=== PATIENT | male | born 1970 | race Caucasian/White ===

== ENCOUNTER 2019-07-31 09:20 | Emergency (ER) | payer OTHER ==
[~2019-07-31] VITALS: Ht 180.3 cm; Wt 90.7 kg
--- OUTSIDE RECORDS SUMMARY | ~2019-07-31 | XMS | Encounter Summary ---
Demographics + + + | Address | [facility] | | | [address] [place] [address] | | | [place] [address] | + + + | Home Phone | | + + + | Preferred Language | Unknown | + + + | Marital Status | Unknown | + + + | Sabianism Affiliation | Unknown | + + + | Race | Unknown | + + + | Ethnic Group | Unknown | + + + Author + + + | Author | [facility] | | | and [place] | + + + | Organization | [facility] | | | and [place] | + + + | Address | Unknown | + + + | Phone | Unavailable | + + + Support + + +---------+ + | Name | Relationship | Address | Phone | + + +---------+ + | No Contacts | ECON | Unknown | | + + +---------+ + Care Team Providers + +------+ + | Care Private Branch Exchange Repairer Name | Role | Phone | + +------+ + | No, Physician | PCP | Unavailable | + +------+ + Reason for Visit +--------+ + | Reason | Comments | +--------+ + | Other | imaging report | +--------+ + Encounter Details +--------+ + + + + | Date | Type | Department | Care Team | Description | +--------+ + + + + | 04/15/ | Telephone | [facility] | Rob Bland, | Other (imaging | | 2019 | | NEUROSURGERY [address] | 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 [address] | report ) | | | | [address] | [address] | | | | | [place], [place] | [place] [address] | | | | | [address] | [phone] | | | | | [phone] | | | +--------+ + + + + Social History + +-------+ +--------+------+ | Tobacco Use | Types | Packs/Day | Years | Date | | | | | Used | | + +-------+ +--------+------+ | Former Smoker | | | | | + +-------+ +--------+------+ + +---+---+---+ | Smokeless Tobacco: | | | | | Never Used | | | | + +---+---+---+ + + + | Sex Assigned at | Date Recorded | | | | + + + | Not on file | | + + + + + + + | Job Start Date | Occupation | Industry | + + + + | Not on file | Not on file | Not on file | + + + + + + + + | Travel History | Travel Start | Travel End | + + + + + + | No recent travel history available. | + + documented as of this encounter Plan of Treatment Not on filedocumented as of this encounter Visit Diagnoses Not on filedocumented in this encounter"
--- OUTSIDE RECORDS SUMMARY | ~2019-07-31 | XMS | Encounter Summary ---
Demographics + + + | Address | [facility] | | | [address] [place] [address] | | | [place] [address] | + + + | Home Phone | | + + + | Preferred Language | Unknown | + + + | Marital Status | Unknown | + + + | Church Affiliation | Unknown | + + + | Race | Unknown | + + + | Ethnic Group | Unknown | + + + Author + + + | Author | [facility] | | | and [place] | + + + | Organization | [facility] | | | [...] Team Providers + +------+ + | Care Fourth Grade Teacher Name | Role | Phone | + +------+ + | No, Physician | PCP | Unavailable | + +------+ + Encounter Details +--------+---------+ + + + | Date | Type | Department | Care Team | Description | +--------+---------+ + + + | 01/04/ | Office | [facility] | Rob Bland, | S/P lumbar | | 2019 | Visit | NEUROSURGERY [address] | SAT TUTOR [address] | laminectomy (Primary | | | | [address] | [address] | Dx); S/P | | | | [place], [place] | [place] [address] | discectomy; | | | | [phone] | [phone] | Degeneration of | | | | [phone] | | intervertebral disc | | | | | | of lumbar region; | | | | | | Lumbar radiculopathy | +--------+---------+ + + + Social History + +-------+ [...] + + documented as of this encounter Last Filed Vital Signs + + + + + | Vital Sign | Reading | Time Taken | Comments | + + + + + | Blood Pressure | 128/87 | 01/04/2019 1:52 PM | | | | | PDT | | + + + + + | Pulse | 74 | 01/04/2019 1:52 PM | | | | | PDT | | + + + + + | Temperature | - | - | | + + + + + | Respiratory Rate | - | - | | + + + + + | Oxygen Saturation | - | - | | + + + + + | Inhaled Oxygen | - | - | | | Concentration | | | | + + + + + | Weight | 89.8 kg (198 lb) | 01/04/2019 1:52 PM | | | | | PDT | | + + + + + | Height | - | - | | + + + + + | Body Mass Index | 26.85 | 09/13/2018 8:19 AM | | | | | PDT | | + + + + + documented in this encounter Progress Notes Rob Bland, SAT TUTOR - 01/04/2019 1:40 PM PDT Neurosurgery: Post Operative Visit Subjective: The patient is here for another postoperative appointment. The patient is S/P L4-5, L5-S1 decompression done by Dr. Ramos on 08/01/2018. The patients reports that he has increased low back pain with radiation down the left leg i n a L5 dermatomal pattern. He reports occasional weakness in the left leg. He is doing lig ht duty work at the [employer]. He is still having low back pain doing his job duties. He stat es that after surgery he was doing okay with pain. He states that about 2 months after surg rodney he was doing more walking or when doing physical activities he started to have increased pain. He has less pain when sitting. He states that he has increased low back pain when b ending at the waist and more leg pain when doing walking and physical activities. He report s numbness over all digits of the left toes and plantar aspect of the foot. He reports no p roblems in the right leg. Pain is currently a 6/10 in his lower lumbar region. Objective: Alert and oriented x3. Two guards present. Incision: clean, dry, intact. Incision has healed well. Motor: 5/5 bilateral lower extremties. Sitting SLR: Negative bilaterally. DTR: 2+ bilateral knees and bilateral achilles Sensation: Subjectively decreased over the left plantar aspect of the foot. Gait: Mildly antalgic Imaging: I reviewed both the imaging studies and the available radiology reports X-ray lumbar spine done on 12/11/2018: Disc narrowing L4-5 with moderate narrowing at L5-S1. Moderate narrowing of the L5-S1 disc space. No acute or subacute fracture seen. Incidentally noted there is calcification of t he left overlying the renal silhouette and is suggestive of a renal calculus. Otherwise unr emarkable lumbar spine. Assessment/Plan: S/P L4-5, L5-S1 decompression done by Dr. Ramos. - The patients reports that he has increased low back pain with radiation down the left leg in a L5 dermatomal pattern. He reports occasional weakness in the left leg. 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 He is still having low back pain doing his job duties. He st ates that after surgery he was doing okay with pain. He states that about 2 months after ramos rgery he was doing more walking and when doing physical activities he started to have increa sed pain. He has less pain when sitting. He states that he has increased low back pain whe n bending at the waist and more leg pain when doing walking and physical activities. He rep orts numbness over all digits of the left toes and plantar aspect of the foot. He reports n o problems in the right leg. - I do recommend that we get a MRI of the lumbar spine. This recommendation was written d own on a letter and put into a sealed envelope and handed to a guard. - The patient will follow-up after MRI lumbar spine is completed to discuss results - The patient was reminded to contact the office in the interim if there are any problems o r concerns. KAMLESH Fried CC: No Physician on file documented in this encounter Plan of Treatment Not on filedocumented as of this encounter Visit Diagnoses + + | Diagnosis | + + | S/P lumbar laminectomy - Primary | + + | S/P discectomy Other postprocedural status | + + | Degeneration of intervertebral disc of lumbar region | + + | Lumbar radiculopathy Thoracic or lumbosacral neuritis or radiculitis, unspecified | + + documented in this encounter"
--- OUTSIDE RECORDS SUMMARY | ~2019-07-31 | XMS | Clinical Summary ---
Demographics + + + | Address | [facility] | | | [address] [place] [address] | | | [place] [address] | + + + | Home Phone | | + + + | Preferred Language | Unknown | + + + | Marital Status | Unknown | + + + | Scientology Affiliation | Unknown | + + + | Race | Unknown | + + + | Ethnic Group | Unknown | + + + Author + + + | Author | [facility] | | | and [place] | + + + | Organization | [facility] | | | and [...] Team Providers + +------+ + | Care Systems Support Officer Name | Role | Phone | + +------+ + | No, Physician | PCP | Unavailable | + +------+ + Allergies No Known Allergies Medications + + + +---------+------+------+-------+ | Medication | Sig | Dispensed | Refills | Star | End | Statu | | | | | | t | Date | s | | | | | | Date | | | + + + +---------+------+------+-------+ | atorvaSTATin | Take 10 mg by mouth | | 0 | 06/2 | | Activ | | (LIPITOR) 10 mg | nightly. | | | 7/20 | | e | | tablet | | | | 18 | | | + + + +---------+------+------+-------+ | lisinopril | Take 20 mg by mouth | | 0 | 06/2 | | Activ | | (PRINIVIL, ZESTRIL) | daily. | | | 7/20 | | e | | 20 mg tablet | | | | 18 | | | + + + +---------+------+------+-------+ | capsaicin (ZOSTRIX | Apply topically 3 | | 0 | | | Activ | | HP) 0.1% topical | times daily. | | | | | e | | cream | | | | | | | + + + +---------+------+------+-------+ | nabumetone | Take 500 mg by mouth | | 0 | | | Activ | | (RELAFEN) 500 mg | 2 times daily. | | | | | e | | tablet | | | | | | | + + + +---------+------+------+-------+ | carBAMazepine | Take by mouth 2 | | 0 | | | Activ | | (TEGRETOL) 100 mg | times daily. | | | | | e | | chewable tablet | | | | | | | + + + +---------+------+------+-------+ | celecoxib | Take 200 mg by mouth | | 0 | | | Activ | | (CELEBREX) 200 mg | 2 times daily. | | | | | e | | capsule | | | | | | | + + + +---------+------+------+-------+ Active Problems + + + | Problem | Noted Date | + + + | Spinal stenosis of lumbar region with neurogenic claudication | 07/26/2018 | + + + + + | Overview: Added automatically from request for surgery [id number] | + + + + + | DDD (degenerative disc disease), lumbar | 07/26/2018 | + + + + + | Overview: Added automatically from request for surgery [id number] | + + + + + | Lumbar radiculopathy | 10/12/2017 | + + + | Degeneration of intervertebral disc of lumbar region | 10/12/2017 | + + + | Herniated lumbar intervertebral disc | 10/12/2017 | + + + Encounters +--------+ + + + + | Date | Type | Specialty | Care Team | Description | +--------+ + + + + | 06/10/ | Telephone | Pain Medicine | Pb Cao, | Procedure | | 2020 | | | MD | | +--------+ + + + + | 06/06/ | Office | Pain Medicine | Misael Huerta, | Lumbar radiculopathy | | 2019 | Visit | | YARN CLEANER | (Primary Dx); | | | | | | Degeneration of | | | | | | intervertebral disc | | | | | | of lumbar region; | | | | | | Herniated lumbar | | | | | | intervertebral disc | +--------+ + + + + from Last 3 Months Social History + +-------+ +--------+------+ | Tobacco [...] recent travel history available. | + + Last Filed Vital Signs + + + + + | Vital Sign | Reading | Time Taken | Comments | + + + + + | Blood Pressure | 113/75 | 04/16/2019 8:12 AM | | | | | PST | | + + + + + | Pulse | 67 | 04/16/2019 8:12 AM | | | | | PST | | + + + + + | Temperature | 36.7 C (98 F) | 08/02/2018 12:26 PM | | | | | PDT | | + + + + + | Respiratory Rate | 19 | 08/02/2018 12:26 PM | | | | | PDT | | + + + + + | Oxygen Saturation | - | - | | + + + + + | Inhaled Oxygen | - | - | | | Concentration | | | | + + + + + | Weight | 90.7 kg (200 lb) | 06/07/2019 8:56 AM | | | | | PST | | + + + + + | Height | 182.9 cm (6') | 06/07/2019 8:56 AM | | | | | PST | | + + + + + | Body Mass Index | 27.12 | 06/07/2019 8:56 AM | | | | | PST | | + + + + + Plan of Treatment + + + + + | Health Maintenance | Due Date | Last Done | Comments | + + + + + | Vaccine: | | 03/21/1972, 06/02/1970 | | | Dtap/Tdap/Td (3 - | 1 | | | | Tdap) | | | | + + + + + | Vaccine: Influenza | Completed | 01/21/2019 | | + + + + + Results Not on filefrom Last 3 Months Insurance + +--------+ +--------+-------+---------+--------+ | Payer | Benefi | Subscriber | Effect | Phone | Address | Type | | | t Plan | ID | celia | | | | | | / | | Dates | | | | | | Group | | | | | | + +--------+ +--------+-------+---------+--------+ | DEPARTMENT OF | CORRCT | [id number] | 03/01/ | | | Indemn | | CORRECTIONS | NL | | 2011-P | | | ity | | | HLTH | | resent | | | | | | FIRST | | | | | | | | [place] | | | | | | + +--------+ +--------+-------+---------+--------+ + +--------+ +--------+ + + | Guarantor Name | Accoun | Relation to | Date | Phone | Billing Address | | | t Type | Patient | of | | | | | | | | | | + +--------+ +--------+ + + | Eliot Garza Jr | Person | Self | [birth year] | [place] | | | al/Fam | | 1971 | [phone] | CORRECTIONAL | | | rubin | | | 9 (Home) | [address] | | | | | | | [place], | | | | | | | [place] [address] | + +--------+ +--------+ + + Advance Directives + + + + + | Type | Date Recorded | Patient | Explanation | | | | Packaging Sales Consultant | | + + + + + | Power of | | | | | Poising Inspector | | | | + + + + + | Advance | | | | | Directive | | | | + + + + +"
--- OUTSIDE RECORDS SUMMARY | ~2019-07-31 | XMS | Encounter Summary ---
Demographics + + + | Address | [facility] | | | [address] [place] [address] | | | [place] [address] | + + + | Home Phone | | + + + | Preferred Language | Unknown | + + + | Marital Status | Unknown | + + + | Congregational Affiliation | Unknown | + + + | Race | Unknown | + + + | Ethnic Group | Unknown | + + + Author + + + | Author | [facility] | | | and [place] | + + + | Organization | [facility] | | | [...] Team Providers + +------+ + | Care Airframe Technical Officer Name | Role | Phone | + +------+ + | No, Physician | PCP | Unavailable | + +------+ + Reason for Visit + + + | Reason | Comments | + + + | Follow-up | Former patient of Fewel | + + + Encounter Details +--------+ + + + + | Date | Type | Department | Care Team | Description | +--------+ + + + + | 12/18/ | Telephone | [facility] | Raji Ramos MD | Follow-up (Former | | 2019 | | NEUROSURGERY [address] | [address] | patient of Richard) | | | | [address] | [address] [place] [address] | | | | | [place], [place] | [place], [place] | | | | | [address] | [address] | | | | | [phone] | [phone] | | | | | | | | +--------+ + + + + Social History + +-------+ +--------+------+ | Tobacco Use | Types | Packs/Day | Years | Date | | | | | Used | | + +-------+ +--------+------+ | Former Smoker | | | | | + +-------+ +--------+------+ + + + | Sex Assigned at [...]
--- OUTSIDE RECORDS SUMMARY | ~2019-07-31 | XMS | Encounter Summary ---
Demographics + + + | Address | [facility] | | | [address] [place] [address] | | | [place] [address] | + + + | Home Phone | | + + + | Preferred Language | Unknown | + + + | Marital Status | Unknown | + + + | Tenriism Affiliation | Unknown | + + + | Race | Unknown | + + + | Ethnic Group | Unknown | + + + Author + + + | Author | [facility] | | | and [place] | + + + | Organization | [facility] | | | [...] Team Providers + +------+ + | Care Fondant Cooker Name | Role | Phone | + +------+ + | No, Physician | PCP | Unavailable | + +------+ + Reason for Visit + + + | Reason | Comments | + + + | Follow-up | | + + + | Back Pain | | + + + Encounter Details +--------+---------+ + + + | Date | Type | Department | Care Team | Description | +--------+---------+ + + + | 06/06/ | Office | [facility] | Misael Huerta, | Lumbar radiculopathy | | 2020 | Visit | [facility] | 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 male HPI Eliot Garza Jr is a 48 y.o. male accompanied by 2 guards who were present for the entiret y of the visit. He presents today with low back pain that radiates to the left lower extrem ity following the L5 dermatomal distribution. He also reports numbness in his left big toe and his entire left foot. His pain is worse with physical activity such as walking. He und erwent laminectomy with Dr. Ramos on 08/01/2018. The surgery did not improve his symptoms. I n fact he states that he feels as if his symptoms have worsened since the surgery. He did u ndergo 1 epidural prior to surgery which was not beneficial. He denies red flag symptoms. He is referred back to us by Rob Bland to discuss treatment options. Per Rob's note he was going to see if the patient could follow-up with Dr. Ramos. His pain is currently a 6 o ut of 10. Review of Systems Objective: Ht 1.829 m (6') | Wt 90.7 kg (200 lb) | BMI 27.12 kg/m Physical Exam Constitutional: He is oriented to person, place, and time. He appears well-developed and we ll-nourished. No distress. HENT: Head: Normocephalic and atraumatic. Eyes: Conjunctivae are normal. Right eye exhibits no discharge. Left eye exhibits no discha rge. Neck: Normal range of motion. No tracheal deviation present. No thyromegaly present. Cardiovascular: Normal rate and regular rhythm. Exam reveals no friction rub. No murmur heard. Pulmonary/Chest: Effort normal and breath sounds normal. No respiratory distress. Abdominal: Soft. Bowel sounds are normal. There is no abdominal tenderness. Neurological: He is alert and oriented to person, place, and time. No cranial nerve deficit . Skin: Skin is warm and dry. No rash noted. He is not diaphoretic. Psychiatric: He has a normal mood and affect. Lumbar: Axial mechanical lumbar pain upon exam. Motor: 5/5 throughout Sensory: Patellar DTRs +2 bilaterally. Decreased to light touch in the left L5 dermatomal distribution as compared to the left. Assessment and Plan: 1. Lumbar radiculopathy 2. Degeneration of intervertebral disc of lumbar region 3. Herniated lumbar intervertebral disc No orders of the defined types were placed in this encounter. No orders of the defined types were placed in this encounter. accompanied by 2 guards who were present for the entirety of the visit. He presents today with low back pain that radiates to the left lower extremity following the L5 dermatomal dis tribution. He also reports numbness in his left big toe and his entire left foot. His pain is worse with physical activity such as walking. He underwent laminectomy with Dr. Richard wolf 08/01/2018. The surgery did not improve his symptoms. In fact he states that he feels as i f his symptoms have worsened since the surgery. He did undergo 1 epidural prior to surgery which was not beneficial. He denies red flag symptoms. He is referred back to us by Rob sims to discuss treatment options. Per Rob's note he was going to see if the patient cou ld follow-up with Dr. Ramos. His pain is currently a 6 out of 10. Lumbar MRI shows postsurgical changes at L4-L5. Moderate to severe right neuroforaminal na rrowing with moderate left neuroforaminal narrowing at L4-L5. Severe left neuroforaminal na rrowing at L5-S1 which is consistent with his symptoms. He is therefore a candidate for a c audal with catheter epidural steroid injection targeting the left L5 and S1 nerve roots unde r fluoroscopy. Plan, alternatives, risks and potential benefits of the procedure were explained to the pat ient in great detail. The patient understands that there is no guarantee they will get pain relief with this procedure. They also understand that if they do get pain relief that ther e is no way to know how long it will last. They also understand there is a risk to the proc edure itself which includes but are not limited to infection, abscess, hematoma, nerve damag e, paraplegia or quadriplegia, increased pain, spinal headache, stroke, and side effects fro m the medications themselves. The patient wishes to proceed. Ample time was given for questions. All of the questions were answered to the patient's sa tisfaction. The patient was encouraged to use proper body mechanics to avoid increased pain , continue heat/cold therapy, home exercises, and medications as prescribed. The patient is in agreement with the plan. The following portions of the patient's histories were reviewed and updated as appropriate and is available elsewhere in the chart: Allergies, current medications, past family history , past medical history, past surgical history, past surgical history and problem list. KAMLESH Zayas has created this entry using [employer] Realitycheck and Grock[employer] macros. The entry has been reviewed and there may still exist sound alike word errors. documented in this encounter Plan of Treatment Not on filedocumented as of this encounter Visit Diagnoses + + | Diagnosis | + + | Lumbar radiculopathy - Primary Thoracic or lumbosacral neuritis or radiculitis, | | unspecified | + + | Degeneration of intervertebral disc of lumbar region | + + | Herniated lumbar intervertebral disc Displacement of lumbar intervertebral disc | | without myelopathy | + + documented in this encounter"
--- OUTSIDE RECORDS SUMMARY | ~2019-07-31 | XMS | Encounter Summary ---
Demographics + + + | Address | [facility] | | | [address] [place] [address] | | | [place] [address] | + + + | Home Phone | | + + + | Preferred Language | Unknown | + + + | Marital Status | Unknown | + + + | Taoist Affiliation | Unknown | + + + | Race | Unknown | + + + | Ethnic Group | Unknown | + + + Author + + + | Author | [facility] | | | and Quiqueana | + + + | Organization | [facility] | | | and [...] Team Providers + +------+ + | Care Technical Associate Name | Role | Phone | + +------+ + PCP | Unavailable | + +------+ + Encounter Details +--------+ + + + + | Date | Type | Department | Care Team | Description | +--------+ + + + + | 08/01/ | Hospital | [facility] | Vika Ramos MD | Spinal stenosis of | | 2019 - | Encounter | CENTER SURGICAL [address] | [address] | lumbar region with | | | | [address] | [address] | neurogenic | | 08/02/ | | [place] | [place] | claudication; DDD | | 2019 | | [address] | [address] | (degenerative disc | | | | [phone] | [phone] | disease), lumbar; | | | | | | Lumbar radiculopathy | +--------+ + + + + Social History + +-------+ +--------+------+ | Tobacco Use | Types | Packs/Day | Years | Date | | | | | Used | | + +-------+ +--------+------+ | Never Assessed | | | | | + +-------+ [...] + + + | Blood Pressure | 113/64 | 08/02/2018 12:26 PM | | | | | PDT | | + + + + + | Pulse | 78 | 08/02/2018 12:26 PM | | | [...] + + + + | Weight | 94.2 kg (207 lb 10.7 | 08/02/2018 12:26 PM | | | | oz) | PDT | | + + + + + | Height | 182.9 cm (6') | 08/02/2018 12:26 PM | | | | | PDT | | + + + + + | Body Mass Index | 28.16 | 08/02/2018 12:26 PM | | | | | PDT | | + + + + + documented in this encounter Medications at Time of Discharge + + + +---------+ + + | Medication | Sig | Dispensed | Refills | Start | End Date | | | | | | Date | | + + + +---------+ + + | atorvaSTATin | Take 10 mg by mouth | | 0 | 09/28/19 | | | (LIPITOR) 10 mg | nightly. | | | 18 | | | tablet | | | | | | + + + +---------+ + + | lisinopril | Take 20 mg by mouth | | 0 | 09/28/19 | | | (PRINIVIL, ZESTRIL) | daily. | | | 18 | | | 20 mg tablet | | | | | | + + + +---------+ + + | Alpha-Lipoic Acid | Take by mouth. | | 0 | 09/28/19 | | | 600 MG CAPS | | | | 18 | 0 | + + + +---------+ + + | | 1 to 2 tablets every | 60 | 0 | 08/03/19 | | | HYDROcodone-acetamin | 6 hours as needed | tablet | | 19 | 9 | | ophen (NORCO) 5-325 | for pain | | | | | | mg per tablet | | | | | | + + + +---------+ + + | meloxicam (MOBIC) | Take 15 mg by mouth | | 0 | 09/28/19 | | | 15 mg tablet | daily. | | | 18 | 9 | + + + +---------+ + + documented as of this encounter Progress Notes Conversion Transaction, Provider Unknown - 08/02/2018 12:17 PM PDTFormatting of this note m ight be different from the original. Nurse Progress Note by Caroline Marshall RN at 08/02/181216 Author: Caroline Marshall RN Service: (none) Author Type: Registered Nurse Filed: 08/02/18 1222 Date of Service: 08/02/181216 Status: Signed Backbreaker: Caroline Marshall RN (Registered Nurse) Report called to [facility] RN. Discharge instructions discussed including dressing felicita nges and pain medication. Per RN clarification needed re: duration of pain medication. Dr. Cyndi yang contacted, Hyrocodone 5/325 1-2 tablets every 6 hours PRN for 14 days. Vika Varela MD - 08/02/2018 7:02 AM PDTFormatting of this note might be different from the or iginal. Progress Notes by Vika Ramos MD at 08/02/18701 Author: Vika Ramos MD Service: Neurosurgery Author Type: Physician Filed: 08/02/18702 Date of Service: 08/02/18701 Status: Signed Backbreaker: Vika Ramos MD (Physician) [facility] Service: Neurological Surgery Progress Note Hospital Day: LOS: 0 days Post-Op Day: 1 Day Post-Op SUBJECTIVE Seems to be doing OK. No leg pain right now. OBJECTIVE Vital Signs: BP 132/77 (BP Location: Right upper arm) | Pulse 71 | Temp 98.8 F (37.1 C) (Oral) | Resp 17 | Ht 1.829 m (6') | Wt 94.2 kg (207 lb 10.8 oz) | SpO2 95% | BMI 28.17 kg/m Input/Output Last 3 shifts I/O last 3 completed shifts: In: 2212 [P.O.:1000; I.V.:1212] Out: 940 [Urine:940] Input/Output Last shift No intake/output data recorded. Physical Exam: Alert and oriented x 3. Speech clear and fluent. Moves UE and LE 5/5. Incision C/D/I. 2 guards here. PROBLEM LIST Active Problems: Lumbar radiculopathy Spinal stenosis of lumbar region with neurogenic claudication DDD (degenerative disc disease), lumbar ASSESSMENT & PLAN POD#1 s/p Lumbar lami/disc, doing well. Discharge likely today after sees PT. Followup ~ 2 weeks postop for wound check. Discharge instructions given (and provided in preop packet and discharge papers). Call office [phone] if any questions or problems or return to [facility] ER. VIKA RAMOS MD 08/02/2018 onversion Transactio n, Provider Unknown - 08/02/2018 6:43 AM PDT Nurse Progress Note by Ronal Gaspar RN at 08/02/18642 Author: Ronal Gaspar RN Service: (none) Author Type: Registered Nurse Filed: 08/02/18642 Date of Service: 08/02/18642 Status: Signed Backbreaker: Ronal Gaspar RN (Registered Nurse) End of shift chart check complete. onver suad Transaction, Provider Unknown - 08/01/2018 6:23 PM PDT Nurse Progress Note by Caroline Marshall RN at 08/01/181822 Author: Caroline Marshall RN Service: (none) Author Type: Registered Nurse Filed: 08/01/181822 Date of Service: 08/01/181822 Status: Addendum Backbreaker: Carloine Marshall RN (Registered Nurse) Related Notes: Original Note by Caroline Marshall RN (Registered Nurse) filed at 08/01/18 182 3 No blood protocol. All applicable protocols followed. All parameter meds checked, all order s released. Chart check complete. onver suad Transaction, Provider Unknown - 08/01/2018 12:31 PM PDT Nurse Progress Note by Ignacia Salomon RN at 08/01/18 1231 Author: Ignacia Salomon RN Service: General Surgery Author Type: Registered Nurse Filed: 08/01/18 1232 Date of Service: 08/01/18 1231 Status: Signed Backbreaker: Ignacia Salomon RN (Registered Nurse) Guard at bedside docume nted in this encounter Plan of Treatment Not on filedocumented as of this encounter Procedures + +--------+ + + + | Procedure Name | Priori | Date/Time | Associated Diagnosis | Comments | | | ty | | | | + +--------+ + + + | FL C ARM < 1 HOUR | Routin | 08/01/2018 | | Results for this | | | e | 12:02 PM | | procedure are in the | | | | PDT | | results section. | + +--------+ + + + documented in this encounter Results FL C-Arm < 1 Hour (08/01/2018 12:02 PM PDT) + + | Specimen | + + | | + + + + + | Impressions | Performed At | + + + | Fluoroscopic service for procedure. Signed by: Gordo Moctezuma Chet | | | Sign Date/Time: 08/01/2018 2:19 PM | | + + + + + + | Narrative | Performed At | + + + | C-ARM <60 W/FLUORO CLINICAL INFORMATION: Laminectomy l4-5 l5-s1 | | | FINDINGS: Fluoro Time: 2.7 seconds. Total number of images: 1. | | | Surgical instruments in the posterior soft tissues at the level of | | | L4-5. Moderate severe disc space narrowing with mild endplate | | | spurring at L4-5. | | + + + + + | Procedure Note | + + | Roney Choudhury Conversion - 11/13/2018 10:22 PM PDT C-ARM <60 W/FLUORO | | CLINICAL INFORMATION: | | Laminectomy l4-5 l5-s1 | | FINDINGS: | | Fluoro Time: 2.7 seconds. Total number of images: 1. | | Surgical instruments in the posterior soft tissues at the level of | | L4-5. Moderate severe disc space narrowing with mild endplate spurring | | at L4-5. | | IMPRESSION: | | Fluoroscopic service for procedure. | | Signed by: Gordo Moctezuma Chet | | Sign Date/Time: 08/01/2018 2:19 PM | + + documented in this encounter Visit Diagnoses + + | Diagnosis | + + | Spinal stenosis of lumbar region with neurogenic claudication Spinal stenosis, lumbar | | region, with neurogenic claudication | + + | DDD (degenerative disc disease), lumbar Degeneration of lumbar or lumbosacral | | intervertebral disc | + + | Lumbar radiculopathy Thoracic or lumbosacral neuritis or radiculitis, unspecified | + + documented in this encounter"
--- OUTSIDE RECORDS SUMMARY | ~2019-07-31 | XMS | Encounter Summary ---
Demographics + + + | Address | [facility] | | | [address] [place] [address] | | | [place] [address] | + + + | Home Phone | | + + + | Preferred Language | Unknown | + + + | Marital Status | Unknown | + + + | Baptism Affiliation | Unknown | + + + | Race | Unknown | + + + | Ethnic Group | Unknown | + + + Author + + + | Author | [facility] | | | and Quiqueana | + + + | Organization | [facility] | | [...] Team Providers + +------+ + | Care Flake Cutter Operator Name | Role | Phone | + +------+ + | No, Physician | PCP | Unavailable | + +------+ + Encounter Details +--------+ + + + + | Date | Type | Department | Care Team | Description | +--------+ + + + + | 08/02/ | Orders Only | [facility] | Raji Ramos MD | | | 2019 | | NEUROSURGERY [address] | [address] | | | | | [address] | [address] | | | | | [place], [place] | [place] | | | | | [address] | [address] | | | | | [phone] | [phone] | | | | | | | [...]
--- OUTSIDE RECORDS SUMMARY | ~2019-07-31 | XMS | Encounter Summary ---
Demographics + + + | Address | [facility] | | | [address] [place] [address] | | | [place] [address] | + + + | Home Phone | | + + + | Preferred Language | Unknown | + + + | Marital Status | Unknown | + + + | Restorationist Affiliation | Unknown | + + + | Race | Unknown | + + + | Ethnic Group | Unknown | + + + Author + + + | Author | [facility] | | | and Quiqueana | + + + | Organization | [facility] | | [...] Team Providers + +------+ + | Care Synthetic Filament Extruder Name | Role | Phone | + +------+ + | No, Physician | PCP | Unavailable | + +------+ + Reason for Visit + + + | Reason | Comments | + + + | Follow-up | imaging review | + + + Self-referral (Routine) + +--------+ + + + + | Status | Reason | Specialty | Diagnoses / | Referred By | Referred To | | | | | Procedures | Contact | Contact | + +--------+ + + + + | Authorized | | Neurosurgery | Diagnoses | | [facility] | | | | | mri review | | Neurosurgery | | | | | | | [address] | | | | | | | [address] | | | | | | | [address] | | | | | | | [place] | | | | | | | [address] | | | | | | | Phone: | | | | | | | [phone] | | | | | | | Fax: | | | | | | | [phone] | + +--------+ + + + + Encounter Details +--------+---------+ + + + | Date | Type | Department | Care Team | Description | +--------+---------+ + + + | 04/16/ | Office | [facility] | EdwinaRob, | Lumbar radiculopathy | | 2020 | Visit | NEUROSURGERY [address] | 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 [address] | (Primary Dx); | | | | [address] | [address] | Herniated lumbar | | | | [place], [place] | [place] [address] | intervertebral disc; | | | | [address] | [phone] | DDD (degenerative | | | | [phone] | | disc disease), | | | | | | lumbar; History of | | | | | | lumbar laminectomy; | | | | | | History of | | | | | | discectomy | +--------+---------+ + + + Social History [...] Weight | 89.8 kg (198 lb) | 04/16/2019 8:12 AM | | | | | PST | | + + + + + | Height | 182.9 cm (6') | 04/16/2019 8:12 AM | | | | | PST | | + + + + + | Body Mass Index | 26.85 | 04/16/2019 8:12 AM | | | | | PST | | + + + + + documented in this encounter Progress Notes Rob Bland, 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 - 04/16/2019 8:00 AM PSTFormatting of this note might be different f rom the original. Neurosurgery: Subjective: The patient is here in follow up for increased back pain. The patient is S/P L4-5, L5-S1 d ecompression done by Dr. Ramos on 08/01/2018. The patients reports that he has increased low back pain with radiation down the left leg i n a L5 dermatomal pattern. He reports occasional weakness in the left leg. 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 He is still having low back pain [...] a 6/10 in his lower lumbar region. The following portions of the patient's history were reviewed and updated as appropriate: a llergies, current medications, past family history, past medical history, past social histor y, past surgical history and problem list. Objective: BP 113/75 | Pulse 67 | Ht 1.829 m (6') | Wt 89.8 kg (198 lb) | BMI 26.85 kg/m Alert and oriented x3. Two guards present. Incision: Incision has healed well. Motor: 5/5 bilateral lower extremties. Sitting SLR: Negative bilaterally. DTR: 2+ bilateral knees and 2+ right achilles 1+ left achilles Sensation: Subjectively decreased over the left plantar aspect of the foot. Gait: Mildly antalgic Imaging: I reviewed both the imaging studies and the available radiology reports MRI lumbar spine done on 01/18/2019: Interval postsurgical alterations from L4-5 laminectomy's. At L4-5 there is small right pa racentral residual or recurrent disc herniation present. Overall there is greater patency o f the central canal at this level with only mild narrowing identified. There is moderate to severe right foraminal stenosis, which is improved from prior imaging. Moderate left neuro foraminal narrowing is again noted. Appears to be severe left L5-S1 neuroforaminal narrowin g. X-ray lumbar spine done on 12/11/2018: Disc narrowing L4-5 with moderate narrowing at L5-S1. Moderate narrowing of the L5-S1 disc space. No acute or subacute fracture seen. Incidentally noted there is calcification of t he left overlying the renal silhouette and is suggestive of a renal calculus. Otherwise unr emarkable lumbar spine. Assessment/Plan: S/P L4-5, L5-S1 decompression done by Dr. Ramos. ICD-10-CM ICD-9-CM 1. Lumbar radiculopathy M54.16 724.4 2. Herniated lumbar intervertebral disc M51.26 722.10 3. DDD (degenerative disc disease), lumbar M51.36 722.52 4. History of lumbar laminectomy Z98.890 V45.89 5. History of discectomy Z98.890 V45.89 - The patients reports that he has increased low back pain with radiation down the left leg in a L5 dermatomal pattern. He reports occasional weakness in the left leg. 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 He is still having low back pain [...] o problems in the right leg. - MRI of the lumbar spine shows interval postsurgical alterations from L4-5 laminectomy's. At L4-5 there is small right paracentral residual or recurrent disc herniation present. O verall there is greater patency of the central canal at this level with only mild narrowing identified. There is moderate to severe right foraminal stenosis, which is improved from pr ior imaging. Moderate left neuroforaminal narrowing is again noted. Appears to be severe l eft L5-S1 neuroforaminal narrowing. - I did recommend that the patient follow up with Interventional Pain Management for evalu ation and treatment. Possible RADU targeting the Left L5 nerve root. Possible MBB/RFN for l eft side low back pain. - The surgery was done with Dr. Ramos, who unfortunately does not work at our clinic any lo nger but is local. I will need to check to see if the patient is able to follow up with Dr. Ramos. - The patient was reminded to contact the office in the interim if there are any problems o r concerns. KAMLESH Fried CC: No Physician on file KAMLESH Fried has created this entry using Enjoyor Voice Recognition Perfectore e and Pivot macros. The entry has been reviewed and there may still exist sound alike word e rrors. Note: I spent approximately 30 minutes in jroc-nq-holy time of which greater than 50% was involved in counseling/coordination of care. documented in this encounter Plan of Treatment Not on filedocumented as of this encounter Visit Diagnoses + + | Diagnosis | + + | Lumbar radiculopathy - Primary Thoracic or lumbosacral neuritis or radiculitis, | | unspecified | + + | Herniated lumbar intervertebral disc Displacement of lumbar intervertebral disc | | without myelopathy | + + | DDD (degenerative disc disease), lumbar Degeneration of lumbar or lumbosacral | | intervertebral disc | + + | History of lumbar laminectomy | + + | History of discectomy Personal history of surgery to other organs | + + documented in this encounter"
--- OUTSIDE RECORDS SUMMARY | ~2019-07-31 | XMS | Encounter Summary ---
Demographics + + + | Address | [facility] | | | [address] [place] [address] | | | [place] [address] | + + + | Home Phone | | + + + | Preferred Language | Unknown | + + + | Marital Status | Unknown | + + + | Hindu Affiliation | Unknown | + + + | Race | Unknown | + + + | Ethnic Group | Unknown | + + + Author + + + | Author | [facility] | | | and Quiqueana | + + + | Organization | [facility] | | [...] Team Providers + +------+ + | Care Industrial Chemistry Teacher Name | Role | Phone | + +------+ + | No, Physician | PCP | Unavailable | + +------+ + Encounter Details +--------+ + + + + | Date | Type | Department | Care Team | Description | +--------+ + + + + | 08/02/ | Orders Only | [facility] | Raji Ramos MD | | | 2019 | | NEUROSURGERY [address] | [address] | | | | | [address] | [address]LO[address] | | | | | [place], [place] | [place] | | | | | [address] | [address] | | | | | [phone] | [phone] | | | | | | | [...]
--- OUTSIDE RECORDS SUMMARY | ~2019-07-31 | XMS | Encounter Summary ---
Demographics + + + | Address | [facility] | | | [address] [place] [address] | | | [place] [address] | + + + | Home Phone | | + + + | Preferred Language | Unknown | + + + | Marital Status | Unknown | + + + | Shinto Affiliation | Unknown | + + + | Race | Unknown | + + + | Ethnic Group | Unknown | + + + Author + + + | Author | [facility] | | | and Quiqueana | + + + | Organization | [facility] | | | [...] Team Providers + +------+ + | Care Journeyman Pipe Fitter Name | Role | Phone | + [...] | | | | | | | [address] | | | | | | | Phone: | | | | | | | [phone] | | | | | | | Fax: | | | | | | | [phone] | + +--------+ + + + + Encounter Details +--------+---------+ + + + | Date | Type | Department | Care Team | Description | +--------+---------+ + + + | 04/16/ | Office | [facility] | EdwinaRob, | Lumbar radiculopathy | | 2020 | Visit | NEUROSURGERY [address] | [employer]CE [address] | (Primary Dx); | | | | [address] | [address] | Herniated lumbar | | | | [place], [place] | [place] [address] | intervertebral disc; | | | | [address] | [phone] | DDD (degenerative | | | | [phone] | | disc disease), | | | [...] in this encounter Progress Notes Rob Bland, DECKHAND MAINTENANCE - 04/16/2019 8:00 AM PSTFormatting of this [...] 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 The entry has been reviewed and there may still exist sound alike word e rrors. Note: I spent approximately 30 minutes in hgam-tz-vffa time of which greater than 50% was [...]
--- OUTSIDE RECORDS SUMMARY | ~2019-07-31 | XMS | Clinical Summary ---
Demographics + + + | Address | [facility] | | | [address] [place] [address] | | | [place] [address] | + + + | Home Phone | | + + + | Preferred Language | Unknown | + + + | Marital Status | Unknown | + + + | Restorationism Affiliation | Unknown | + + + | Race | Unknown | + + + | Ethnic Group | Unknown | + + + Author + + + | Author | [facility] | | | and Quiqueana | + + + | Organization | [facility] | | [...] Team Providers + +------+ + | Care Extension Work Instructor Name | Role | Phone | + [...] Overview: Added automatically from request for surgery [id number] | + + + + + | DDD (degenerative disc disease), lumbar | 07/26/2018 | + + + + + | Overview: Added automatically from request for surgery [id number] | + + + + + | [...] | | 2019 | Visit | | 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
--- OUTSIDE RECORDS SUMMARY | ~2019-07-31 | XMS | Encounter Summary ---
Demographics + + + | Address | [facility] | | | [address] [place] [address] | | | [place] [address] | + + + | Home Phone | | + + + | Preferred Language | Unknown | + + + | Marital Status | Unknown | + + + | Tenriism Affiliation | Unknown | + + + | Race | Unknown | + + + | Ethnic Group | Unknown | + + + Author + + + | Author | [facility] | | | and Quiqueana | + + + | Organization | [facility] | | [...] Team Providers + +------+ + | Care Publications Editor Name | Role | Phone | + +------+ + PCP | Unavailable | + +------+ + Encounter Details +--------+ + + + + | Date | Type | Department | Care Team | Description | +--------+ + + + + | 08/01/ | Hospital | [facility] | Vika Ramos MD | Spinal stenosis of | | 2019 - | Encounter | CENTER SURGICAL [address] | [address] | lumbar region with | | | | [address] | [address] | neurogenic | | 08/02/ | | [place] | [place] | claudication; DDD | | 2019 | | [address] | [address] | (degenerative disc | | | | [phone] | [phone] | disease), lumbar; | | | | [...] 1222 Date of Service: 08/02/181216 Status: Signed Tourist Camp Attendant: Caroline Marshall RN (Registered Nurse) Report called to [facility] RN. Discharge instructions discussed including dressing [...] 08/02/18702 Date of Service: 08/02/18701 Status: Signed Tourist Camp Attendant: Vika Ramos MD (Physician) [facility] Service: Neurological Surgery Progress Note Hospital [...] preop packet and discharge papers). Call office [phone] if any questions or problems or return to [facility] ER. VIKA RAMOS MD 08/02/2018 onversion Transactio n, Provider Unknown - 08/02/2018 6:43 AM PDT Nurse Progress Note by Ronal Gaspar RN at 08/02/18642 Author: Ronal Gaspar RN Service: (none) Author Type: Registered Nurse Filed: 08/02/18642 Date of Service: 08/02/18642 Status: Signed Tourist Camp Attendant: Ronal Gaspar RN (Registered Nurse) End of shift chart check complete. onver suad Transaction, Provider Unknown - 08/01/2018 6:23 PM PDT Nurse Progress Note by Caroline Marshall RN at 08/01/181822 Author: Caroline Marshall RN Service: (none) Author Type: Registered Nurse Filed: 08/01/181822 Date of Service: 08/01/181822 Status: Addendum Tourist Camp Attendant: Caroline Marshall RN (Registered Nurse) Related Notes: Original [...] Date of Service: 08/01/18 1231 Status: Signed Tourist Camp Attendant: Ignacia Salomon RN (Registered Nurse) Guard at [...]
--- OUTSIDE RECORDS SUMMARY | ~2019-07-31 | XMS | Encounter Summary ---
Demographics + + + | Address | [facility] | | | [address] [place] [address] | | | [place] [address] | + + + | Home Phone | | + + + | Preferred Language | Unknown | + + + | Marital Status | Unknown | + + + | Sikhism Affiliation | Unknown | + + + | Race | Unknown | + + + | Ethnic Group | Unknown | + + + Author + + + | Author | [facility] | | | and Quiqueana | + + + | Organization | [facility] | | | [...] Team Providers + +------+ + | Care Academic Coordinator Name | Role | Phone | + +------+ + | No, Physician | PCP | Unavailable | + +------+ + Encounter Details +--------+ + + + + | Date | Type | Department | Care Team | Description | +--------+ + + + + | 09/27/ | Orders Only | [facility] | Conversion | | | 2018 | | CONVERSION DEP [address] | Transaction, | | | | | [address] | Provider Unknown | | | | | [place], [place] | [phone] | | | | | [address] | | | | | | [phone] | | | +--------+ + + + [...]
--- OUTSIDE RECORDS SUMMARY | ~2019-07-31 | XMS | Clinical Summary ---
Demographics + + + | Address | [facility] | | | [address] [place] [address] | | | [place] [address] | + + + | Home Phone | | + + + | Preferred Language | Unknown | + + + | Marital Status | Unknown | + + + | Nondenominational Affiliation | Unknown | + + + | Race | Unknown | + + + | Ethnic Group | Unknown | + + + Author + + + | Author | [facility] (Historical as of | | | 11-17-18) | + + + | Organization | [facility] (Historical as of | | | 11-17-18) | + + + | Address | Unknown | + + + | Phone | Unavailable | + + + Support + + +---------+ + | Name | Relationship | Address | Phone | + + +---------+ + | Contacts,No | ECON | Unknown | | + + +---------+ + Care Team Providers + +------+ + | Care Warper Fixer Name | Role | Phone | + +------+ + PP | Unavailable | + +------+ + Allergies No Known Allergies Current Medications + + +--------+---------+------+------+-------+ | Prescription | Sig. | Disp. | Refills | Star | End | Statu | | | | | | t | Date | s | | | | | | Date | | | + + +--------+---------+------+------+-------+ | meloxicam (MOBIC) | Take 15 mg by mouth | | | | | Activ | | 15 MG tablet | daily. | | | | | e | + + +--------+---------+------+------+-------+ | Alpha-Lipoic Acid | Take by mouth. | | | | | Activ | | 600 MG CAPS | | | | | | e | + + +--------+---------+------+------+-------+ | atorvastatin | Take 10 mg by mouth | | | | | Activ | | (LIPITOR) 10 MG | nightly. | | | | | e | | tablet | | | | | | | + + +--------+---------+------+------+-------+ | lisinopril | Take 20 mg by mouth | | | | | Activ | | (ZESTRIL) 20 MG | daily. | | | | | e | | tablet | | | | | | | + + +--------+---------+------+------+-------+ | | 1 to 2 tablets every | 60 | 0 | 05/0 | | Activ | | HYDROcodone-acetamin | 6 hours as needed | tablet | | 2/20 | | e | | ophen (NORCO) 5-325 | for pain | | | 19 | | | | MG per tablet | | | | | | | + + +--------+---------+------+------+-------+ Active Problems + + + | Problem | Noted Date | + + + | Spinal stenosis of lumbar region with neurogenic claudication | 07/26/2018 | + + + + + | Overview: Added automatically from request for surgery [id number] | + + + + + | DDD (degenerative disc disease), lumbar | 07/26/2018 | + + + + + | Overview: Added automatically from request for surgery [id number] | + + + + + | Lumbar radiculopathy | 10/12/2017 | + + + | Degeneration of intervertebral disc of lumbar region | 10/12/2017 | + + + | Herniated lumbar intervertebral disc | 10/12/2017 | + + + Social History + +-------+ +--------+------+ | Tobacco Use | Types | Packs/Day | Years | Date | | | | | Used | | + +-------+ +--------+------+ | Former Smoker | | | | | + +-------+ +--------+------+ + +---+---+---+ | Smokeless Tobacco: | | | | | Never Used | | | | + +---+---+---+ + + +---------+ + | Alcohol Use | Drinks/We | oz/Week | Comments | | | ek | | | + + +---------+ + | No | | | | + + +---------+ + + + + | Sex Assigned at | Date Recorded | | | | + + + | Not on file | | + + + Last Filed Vital Signs + + + + | Vital Sign | Reading | Time Taken | + + + + | Blood Pressure | 113/64 | 08/02/2018 11:29 AM PDT | + + + + | Pulse | 78 | 08/02/2018 11:29 AM PDT | + + + + | Temperature | 36.7 C (98 F) | 08/02/2018 11:29 AM PDT | + + + + | Respiratory Rate | 19 | 08/02/2018 11:29 AM PDT | + + + + | Oxygen Saturation | 95% | 08/02/2018 11:29 AM PDT | + + + + | Inhaled Oxygen | - | - | | Concentration | | | + + + + | Weight | 88.5 kg (195 lb) | 09/13/2018 8:17 AM PDT | + + + + | Height | 182.9 cm (6') | 09/13/2018 8:17 AM PDT | + + + + | Body Mass Index | 26.45 | 09/13/2018 8:17 AM PDT | + + + + Plan of Treatment + + + + + | Health Maintenance | Due Date | Last Done | Comments | + + + + + | Vaccine: | | | | | Dtap/Tdap/Td (1 - | 9 | | | | Tdap) | | | | + + + + + | Vaccine: Influenza | | | | | (Season Ended) | 0 | | | + + + + + Results Not on filefrom Last 3 Months Insurance + +--------+ +------+-------+---------+ | Payer | Benefi | Subscriber | Type | Phone | Address | | | t Plan | ID | | | | | | / | | | | | | | Group | | | | | + +--------+ +------+-------+---------+ | [employer] | [employer] | [id number] | | | | | | RECTIO | | | | | | | NAL | | | | | | | HEALTH | | | | | | | | | | | | | | PARTNE | | | | | | | RS | | | | | + +--------+ +------+-------+---------+ + +--------+ +--------+ + + | Guarantor Name | Accoun | Relation to | Date | Phone | Billing Address | | | t Type | Patient | of | | | | | | | | | | + +--------+ +--------+ + + | DEBBY HAWLEY JR | Kellyc | Other | [birth year] | Home: | [facility] | | | tional | | 1971 | [phone] | Correctional | | | | | | [phone] | | | Facili | | | | [place], | | | ty | | | | [place] [address] | + +--------+ +--------+ + +"
--- OUTSIDE RECORDS SUMMARY | ~2019-07-31 | XMS | Encounter Summary ---
Demographics + + + | Address | [facility] | | | [address] [place] [address] | | | [place] [address] | + + + | Home Phone | | + + + | Preferred Language | Unknown | + + + | Marital Status | Unknown | + + + | Yarsanism Affiliation | Unknown | + + + | Race | Unknown | + + + | Ethnic Group | Unknown | + + + Author + + + | Author | [facility] | | | and Quiqueana | + + + | Organization | [facility] | | | [...] Team Providers + +------+ + | Care Environment Artist Name | Role | Phone | + [...] Provider Unknown | | | | | [place], [place] | [phone] | | | | | [address] | | | | | | [phone] | | | +--------+ + + + [...]
--- OUTSIDE RECORDS SUMMARY | ~2019-07-31 | XMS | Encounter Summary ---
Demographics + + + | Address | [facility] | | | [address] [place] [address] | | | [place] [address] | + + + | Home Phone | | + + + | Preferred Language | Unknown | + + + | Marital Status | Unknown | + + + | Catholic Affiliation | Unknown | + + + | Race | Unknown | + + + | Ethnic Group | Unknown | + + + Author + + + | Author | [facility] | | | and Quiqueana | + + + | Organization | [facility] | | [...] Team Providers + +------+ + | Care Latin American Studies Professor Name | Role | Phone | + +------+ + | No, Physician | PCP | Unavailable | + +------+ + Encounter Details +--------+---------+ + + + | Date | Type | Department | Care Team | Description | +--------+---------+ + + + | 01/04/ | Office | [facility] | Rob Bland, | S/P lumbar | | 2019 | Visit | NEUROSURGERY [address] | ASSOCIATE PRINCIPAL [address] | laminectomy (Primary | | | | [address] | [address] | Dx); S/P | | | | [place], [place] | [place] [address] | discectomy; | | | | [phone] | [phone] | Degeneration of | | | | [phone] | | intervertebral disc | | | [...] in this encounter Progress Notes Rob Bland, ASSOCIATE PRINCIPAL - 01/04/2019 1:40 PM PDT Neurosurgery: Post [...] 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 He is still having low back [...]
--- OUTSIDE RECORDS SUMMARY | ~2019-07-31 | XMS | Encounter Summary ---
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
--- OUTSIDE RECORDS SUMMARY | ~2019-07-31 | XMS | Encounter Summary ---
Demographics + + + | Address | [facility] | | | [address] [place] [address] | | | [place] [address] | + + + | Home Phone | | + + + | Preferred Language | Unknown | + + + | Marital Status | Unknown | + + + | Orthodoxy Affiliation | Unknown | + + + | Race | Unknown | + + + | Ethnic Group | Unknown | + + + Author + + + | Author | [facility] | | | and Quiqueana | + + + | Organization | [facility] | | [...] Team Providers + +------+ + | Care Clinical Associate Name | Role | Phone | + +------+ + PCP | Unavailable | + +------+ + Encounter Details +--------+ + + + + | Date | Type | Department | Care Team | Description | +--------+ + + + + | 09/01/ | Hospital | [facility] | Conversion | Pain | | 2018 | Encounter | CONVERSION DEP [address] | Transaction, | | | | | [address] | Provider Unknown | | | | | [place], [place] | [phone] | | | | | [address] | | | | | | [phone] | | | +--------+ + + + [...] | + +--------+ + + + | MRI LUMBAR SPINE WO | Routin | 07/13/2017 | | Results for this | | CONTRAST | e | 10:49 PM | | procedure are in the | | | | PDT | | results section. | + +--------+ + + + documented in this encounter Results MRI Lumbar Spine wo Contrast (07/13/2017 10:49 PM PDT) + + | Specimen | + + | | + + + + + | Narrative | Performed At | + + + | This is a non-reportable procedure without a radiologist report and | | | is used for image storage only | | + + + + + | Procedure Note | + + | KeiRoney Conversion - 11/14/2018 4:50 PM PDT This is a non-reportable procedure | | without a radiologist report and isused for image storage only | + + documented in this encounter Visit Diagnoses + + | Diagnosis | + + | Pain Generalized pain | + + documented in this encounter"
--- OUTSIDE RECORDS SUMMARY | ~2019-07-31 | XMS | Encounter Summary ---
Demographics + + + | Address | [facility] | | | [address] [place] [address] | | | [place] [address] | + + + | Home Phone | | + + + | Preferred Language | Unknown | + + + | Marital Status | Unknown | + + + | Taoism Affiliation | Unknown | + + + | Race | Unknown | + + + | Ethnic Group | Unknown | + + + Author + + + | Author | [facility] | | | and Quiqueana | + + + | Organization | [facility] | | [...] Team Providers + +------+ + | Care Cutting Machine Tender Name | Role | Phone | + +------+ + | No, Physician | PCP | Unavailable | + +------+ + Reason for Visit + + + | Reason | Comments | + + + | Procedure | | + + + Encounter Details +--------+ + + + + | Date | Type | Department | Care Team | Description | +--------+ + + + + | 06/10/ | Telephone | [facility] | Pb aCo, | Procedure | | 2020 | | [facility] | [address] | | | | | [address] | [address] | | | | | [address] | [place] [address] | | | | | [place], [place] | [phone] | | | | | [address] | | | | | | [phone] | | | +--------+ + + + [...]
--- OUTSIDE RECORDS SUMMARY | ~2019-07-31 | XMS | Encounter Summary ---
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 The entry has been reviewed and [...]
--- OUTSIDE RECORDS SUMMARY | ~2019-07-31 | XMS | Encounter Summary ---
Demographics + + + | Address | [facility] | | | [address] [place] [address] | | | [place] [address] | + + + | Home Phone | | + + + | Preferred Language | Unknown | + + + | Marital Status | Unknown | + + + | Christianity Affiliation | Unknown | + + + | Race | Unknown | + + + | Ethnic Group | Unknown | + + + Author + + + | Author | [facility] | | | and Quiqueana | + + + | Organization | [facility] | | | [...] Team Providers + +------+ + | Care Respiratory Care Program Director Name | Role | Phone | + [...] 06/10/ | Telephone | [facility] | Pb Cao, | Procedure | | 2020 | | [facility] | [address] | | | | | [address] | [address] | | | | | [address] | [place] [address] | | | | | [place], [place] | [phone] | | | | | [address] | | | | | | [phone] | | | +--------+ + + + [...]
--- OUTSIDE RECORDS SUMMARY | ~2019-07-31 | XMS | Clinical Summary ---
Demographics + + + | Address | [facility] | | | [address] [place] [address] | | | [place] [address] | + + + | Home Phone | | + + + | Preferred Language | Unknown | + + + | Marital Status | Unknown | + + + | Episcopalian Affiliation | Unknown | + + + | Race | Unknown | + + + | Ethnic Group | Unknown | + + + Author + + + | Author | [employer] [facility] [employer] (Historical as of | | | 11-17-18) | + + + | Organization | [facility] (Historical as of | | | 11-17-18) [...] Team Providers + +------+ + | Care Sweeper Driver Name | Role | Phone | + [...] Overview: Added automatically from request for surgery [id number] | + + + + + | DDD (degenerative disc disease), lumbar | 07/26/2018 | + + + + + | Overview: Added automatically from request for surgery [id number] | + + + + + | [...] +------+-------+---------+ | [facility] | [facility] | [id number] | | | | | | RECTIO [...] | Other | [birth year] | Home: | [facility] | | | tional | | 1971 | [phone] | Correctional | | | | | | [address] | [address] | | | Facili | | | | [place], | | | ty | | | | [place] [address] | + +--------+ +--------+ + +"
--- OUTSIDE RECORDS SUMMARY | ~2019-07-31 | XMS | Encounter Summary ---
Demographics + + + | Address | [facility] | | | [address] [place] [address] | | | [place] [address] | + + + | Home Phone | | + + + | Preferred Language | Unknown | + + + | Marital Status | Unknown | + + + | Cheondoism Affiliation | Unknown | + + + | Race | Unknown | + + + | Ethnic Group | Unknown | + + + Author + + + | Author | [facility] | | | and Quiqueana | + + + | Organization | [facility] | | | [...] Team Providers + +------+ + | Care Account Manager Relief Name | Role | Phone | + +------+ + PCP | Unavailable | + +------+ + Encounter Details +--------+ + + + + | Date | Type | Department | Care Team | Description | +--------+ + + + + | 11/03/ | Hospital | [facility] | Conversion | Pain | | 2018 | Encounter | CONVERSION DEP [address] | Transaction, | | | | | [address] | Provider Unknown | | | | | [place], [place] | [phone] | | | | | [address] | | | | | | [phone] | | | +--------+ + + + [...] + + documented as of this encounter Medications at Time of Discharge [...] | + +--------+ + + + | XR LUMBAR SPINE 2 OR | Routin | 10/24/2017 | | Results for this | | 3 VW | e | 10:52 PM | | procedure are in the | | | | PDT | | results section. | + +--------+ + + + documented in this encounter Results XR Lumbar Spine 2 or 3 Vw (10/24/2017 10:52 PM PDT) + + | Specimen | + + | | + + + + + | Narrative | Performed At | + + + | This is a non-reportable procedure without a radiologist report and | | | is used for image storage only | | + + + + + | Procedure Note | + + | Roney Choudhury Chelsey - 11/14/2018 4:50 PM PDT This is a non-reportable procedure | | without a radiologist report and isused for image storage only | + + documented in this encounter Visit Diagnoses + + | Diagnosis | + + | Pain Generalized pain | + + documented in this encounter"
--- OUTSIDE RECORDS SUMMARY | ~2019-07-31 | XMS | Encounter Summary ---
Demographics + + + | Address | [facility] | | | [address] [place] [address] | | | [place] [address] | + + + | Home Phone | | + + + | Preferred Language | Unknown | + + + | Marital Status | Unknown | + + + | Adventism Affiliation | Unknown | + + + | Race | Unknown | + + + | Ethnic Group | Unknown | + + + Author + + + | Author | [facility] | | | and Quiqueana | + + + | Organization | [facility] | | | and [...] Team Providers + +------+ + | Care Die Baker Name | Role | Phone | + +------+ + PCP | Unavailable | + +------+ + Encounter Details +--------+ + + + + | Date | Type | Department | Care Team | Description | +--------+ + + + + | 09/01/ | Hospital | [facility] | Conversion | Pain | | 2018 | Encounter | CONVERSION DEP [address] | Transaction, | | | | | [address] | Provider Unknown | | | | | [place], [place] | [phone] | | | | | [address] | | | | | | [phone] | | | +--------+ + + + [...]
--- OUTSIDE RECORDS SUMMARY | ~2019-07-31 | XMS | Encounter Summary ---
Demographics + + + | Address | [facility] | | | [address] [place] [address] | | | [place] [address] | + + + | Home Phone | | + + + | Preferred Language | Unknown | + + + | Marital Status | Unknown | + + + | Holiness Affiliation | Unknown | + + + | Race | Unknown | + + + | Ethnic Group | Unknown | + + + Author + + + | Author | [facility] | | | and Quiqueana | + + + | Organization | [facility] | | | [...] Team Providers + +------+ + | Care Postpartum Nurse Name | Role | Phone | + [...] + + | 12/18/ | Telephone | [facility] | Raji Ramos MD | Follow-up (Former | | 2019 | | NEUROSURGERY [address] | [address] | patient of Richard) | | | | SHEYLA MICHELE | [address] [place] [address] | | | | | [place], [place] | [place], [place] | | | | | [address] | [address] | | | | | [phone] | [phone] | | | | | | | [...]
--- OUTSIDE RECORDS SUMMARY | ~2019-07-31 | XMS | Encounter Summary ---
Demographics + + + | Address | [facility] | | | [address] [place] [address] | | | [place] [address] | + + + | Home Phone [...] Team Providers + +------+ + | Care Healthcare Manager Name | Role | Phone | + +------+ + PCP | Unavailable | + +------+ + Encounter Details +--------+ + + + + | Date | Type | Department | Care Team | Description | +--------+ + + + + | 11/03/ | Hospital | [facility] | Conversion | Pain | | 2018 | Encounter | CONVERSION DEP [address] | Transaction, | | | | | [address] | Provider Unknown | | | | | [place], [place] | [phone] | | | | | [address] | | | | | | [phone] | | | +--------+ + + + [...]
[2019-07-31] MEDS ORDERED: ZESTRIL10 MG PO (09:47)
[2019-07-31] MEDS ORDERED: LIPITOR20 MG PO (09:47)
[2019-07-31] MEDS ORDERED: CELEBREX100 MG PO (09:48)
[2019-07-31] MEDS ORDERED: PERCOCET 7.5-31 EACH PO (11:53)
[2019-07-31] MEDS ORDERED: ONDANSETRON ODT8 MG PO (11:53)
[2019-07-31] MEDS ORDERED: FLOMAX0.4 MG PO (11:53)
== END 2019-07-31 12:09 | disposition home or self-care (01) ==
LOC: ED 09:20
DX: N13.2 Hydronephrosis with renal and ureteral calculous obstruction (principal); Z79.899 Other long term (current) drug therapy
CPT/HCPCS: 51798; 74176; 80053; 81001; 83690; 85025; 99284-25; J1170; J7030